=== PATIENT | male | born 1990 | race Two or more races ===

== ENCOUNTER 2018-06-08 07:52 | Emergency (ER) | payer OTHER ==
[~2018-06-08] VITALS: Ht 175.3 cm; Wt 80.0 kg
[2018-06-08] MEDS ORDERED: ASPIRIN 325MG TABLET PO ONE (08:45)
[2018-06-08 08:58] LABS: BASOPHILS % 0.7 % (0.0-2.0); EOSINOPHILS % 1.2 % (0.0-5.0); HEMATOCRIT. 52.2 % (42.0-52.0); HEMOGLOBIN. 17.2 g/dL (14.0-18.0); LYMPHOCYTES % 28.2 % (20.0-50.0); MEAN CORPUSCULAR HEMOGLOBIN 27.6 pg (28.0-32.0); MEAN CORPUSCULAR VOLUME 83.8 fL (80.0-94.0); MEAN PLATELET VOLUME 9.3 fl (7.4-10.4); MONOCYTES % 6.3 % (2.0-8.0); NEUTROPHILS % 63.6 % (40.0-76.0); PLATELET 209 x1000/uL (130-400); RED BLOOD CELL COUNT 6.24 mill/uL (4.7-6.1); RED CELL DISTRIBUTION WIDTH 13.9 % (11.6-14.6)
[2018-06-08 09:05] LABS: CHLORIDE 104 mEq/L (98-107)
[2018-06-08] MEDS ORDERED: ONDANSETRON HCL 4MG/2ML INJ IV STA (09:25)
[2018-06-08] MEDS ORDERED: MORPHINE SULFATE 2 MG/ML CPJ (NOT FOR IM USE) IV NR (09:25)
[2018-06-08] MEDS ORDERED: ENOXAPARIN 80MG/0.8ML SYR SUBCUT NR (10:00)
[2018-06-08 10:04] VITALS: BP 155/90
== END 2018-06-08 10:32 | disposition short-term general hospital (02) ==
LOC: ER 07:52
DX: I21.3 ST elevation (STEMI) myocardial infarction of unspecified site (principal); F15.10 Other stimulant abuse, uncomplicated; Z86.73 Personal history of transient ischemic attack (TIA), and cerebral infarction without residual deficits
CPT/HCPCS: 36415; 71045; 71275; 74174; 80053; 83880; 84484; 85025; 93005; 96372; 96374; 96375; 99285; J1650; J2270; J2405